=== PATIENT | male | born 1970 | race Caucasian/White ===

== ENCOUNTER 2016-11-12 19:03 | Emergency (ER) | payer MEDICAID ==
--- NOTE | 2016-12-01 07:40 | ER ---
ADMIT: 11/12/2016 RM/LOC: ER [facility] MR#: [id number] [facility] [id number] NARESH LILLY [address] [place] [address] Emergency Room Report SEX: M AGE: 46 : 1970 DATE: 11/12/2016 ADDENDUM: CHIEF COMPLAINT: Left knee pain. HISTORY OF PRESENT ILLNESS: This is a 46-year-old, who twisted his knee. He mostly complains of medial aspect. It is painful to walk on. I put him in a knee immobilizer after a negative x-ray, having him ice, use ibuprofen or Tylenol for pain, and follow up with primary care physician if it does not improve. CLINICAL IMPRESSION: Left knee sprain. TAMAR Stoddard / Pramod Stone MD / omero JOB #: [id number] CC: Pramod Stone MD, Attending Physician Marvin Maza MD, Family Physician
== END 2016-11-12 20:08 | disposition home or self-care (01) ==
LOC: ER 19:03
DX: S83.92XA Sprain of unspecified site of left knee, initial encounter (principal); X50.9XXA Other and unspecified overexertion or strenuous movements or postures, initial encounter